=== PATIENT | male | born 2000 | race Hispanic/Latino ===

== ENCOUNTER 2018-12-24 00:53 | Emergency (ER) | payer SELFPAY ==
[2018-12-24 02:08] LABS: Absolute Lymphocytes (CBC) 1.7 K/uL (0.7-4.9); Basophils % 0.3 % (0-1.3); Hematocrit 48.3 % (39.6-49.0); Lymphocytes % 16.9 % (15.3-44.8); MPV 9.4 fL (7.6-11.3); RBC Red Blood Cell Count 5.63 M/uL (4.33-5.43)
[2018-12-24 02:25] LABS: ALT/SGPT 33 U/L (12-78); AST/SGOT 18 U/L (15-37); Albumin 4.8 g/dL (3.4-5.0); Alkaline Phosphatase 76 U/L (45-117); BUN Blood Urea Nitrogen 8 mg/dL (7-18); Bicarbonate 30 mmol/L (21-32); Bilirubin Direct 0.1 mg/dL (0-0.2); Bilirubin Total 0.3 mg/dL (0.2-1.0); Glucose Level 105 mg/dL (74-106); Lipase 60 U/L (73-393); Potassium 3.9 mmol/L (3.5-5.1); Protein, Total 8.5 g/dL (6.4-8.2); Sodium Level 139 mmol/L (136-145); Troponin (Emerg Dept Use Only) < 0.02 ng/mL (0.0-0.045)
--- NOTE | 2018-12-24 02:31 | EDPHYS ---
Physician Documentation [facility] Name: Aron Avila Jr Age: 18 yrs Sex: Male : 2000 Arrival Date: 12/24/2018 Time: 00:58 Bed 18 Private MD: ED Physician Lit Daniels HPI: 12/24 01:09 This 18 yrs old Male presents to ER via Unassigned with complaints of kb Abdominal Pain, "Rapid Heart Rate". 01:09 The patient presents with abdominal pain that is diffuse. Onset: The symptoms/episode kb began/occurred 5 month(s) ago. The symptoms do not radiate. Associated signs and symptoms: Pertinent positives: nausea. The symptoms are described as intermittent. Modifying factors: The symptoms are alleviated by nothing, the symptoms are aggravated by nothing. Severity of pain: At its worst the pain was moderate in the emergency department the pain is unchanged. The patient has not recently seen a physician. Pt reports abdominal pain for 4-5 months and chest pain for 1-2 years. Came tonight because he had some nausea after going up some stairs at work. "I've been having the nausea for a few weeks too. I just want to make sure I don't have anything going on.'. Historical: - Allergies: 01:05 No Known Allergies; cc3 - PSHx: 01:05 right cheek surgery; cc3 - Immunization history:: Adult Immunizations not up to date. - Social history:: Smoking status: Patient uses tobacco products, quit 5 mos ago. - Ebola Screening: : No symptoms or risks identified at this time. ROS: 01:09 Constitutional: Negative for fever, chills, and weight loss, ENT: Negative for injury, kb pain, and discharge, Neck: Negative for injury, pain, and swelling, Respiratory: Negative for shortness of breath, cough, wheezing, and pleuritic chest pain, Back: Negative for injury and pain, : Negative for injury, bleeding, discharge, and swelling, MS/Extremity: Negative for injury and deformity, Skin: Negative for injury, rash, and discoloration, Neuro: Negative for headache, weakness, numbness, tingling, and seizure. 01:09 Cardiovascular: Positive for chest pain, Negative for edema, orthopnea, palpitations, paroxysmal nocturnal dyspnea. 01:09 Abdomen/GI: Positive for abdominal pain, nausea, Negative for vomiting, diarrhea, constipation, abdominal cramps, abdominal distension, anorexia. Exam: 01:09 Constitutional: This is a well developed, well nourished patient who is awake, alert, kb and in no acute distress. Head/Face: Normocephalic, atraumatic. ENT: Nares patent. No nasal discharge, no septal abnormalities noted. Tympanic membranes are normal and external auditory canals are clear. Oropharynx with no redness, swelling, or masses, exudates, or evidence of obstruction, uvula midline. Mucous membranes moist. Neck: Trachea midline, no thyromegaly or masses palpated, and no cervical lymphadenopathy. Supple, full range of motion without nuchal rigidity, or vertebral point tenderness. No Meningismus. Chest/axilla: Normal chest wall appearance and motion. Nontender with no deformity. No lesions are appreciated. Cardiovascular: Regular rate and rhythm with a normal S1 and S2. No gallops, murmurs, or rubs. Normal PMI, no JVD. No pulse deficits. Respiratory: Lungs have equal breath sounds bilaterally, clear to auscultation and percussion. No rales, rhonchi or wheezes noted. No increased work of breathing, no retractions or nasal flaring. Back: No spinal tenderness. No costovertebral tenderness. Full range of motion. Skin: Warm, dry with normal turgor. Normal color with no rashes, no lesions, and no evidence of cellulitis. MS/ Extremity: Pulses equal, no cyanosis. Neurovascular intact. Full, normal range of motion. Neuro: Awake and alert, GCS 15, oriented to person, place, time, and situation. Cranial nerves II-XII grossly intact. Motor strength 5/5 in all extremities. Sensory grossly intact. Cerebellar exam normal. Normal gait. 01:09 Abdomen/GI: Inspection: abdomen appears normal, Bowel sounds: normal, in all quadrants, Palpation: soft, in all quadrants, mild abdominal tenderness, in the epigastric area, umbilical area, right upper quadrant and left upper quadrant. Vital Signs: 01:05 BP 132 / 87; Pulse 81; Resp 16 S; Temp 99(O); Pulse Ox 100% on R/A; Weight 80.74 kg cc3 (R); Height 5 ft. 5 in. (165.10 cm) (R); Pain 5/10; 02:14 BP 123 / 80; Pulse 76; Resp 19 S; Pulse Ox 100% on R/A; cc3 01:05 Body Mass Index 29.62 (80.74 kg, 165.10 cm) cc3 MDM: 01:03 Patient medically screened. kb 01:09 Data reviewed: vital signs, nurses notes. Data interpreted: Pulse oximetry: on room air kb is 100 %. Interpretation: normal. 02:28 Counseling: I had a detailed discussion with the patient and/or guardian regarding: the kb historical points, exam findings, and any diagnostic results supporting the discharge/admit diagnosis, lab results, the need for outpatient follow up, a family practitioner, to return to the emergency department if symptoms worsen or persist or if there are any questions or concerns that arise at home. 12/24 01:09 Order name: Basic Metabolic Panel; Complete Time: 02:27 kb 12/24 01:09 Order name: CBC with Diff; Complete Time: 02:19 kb 12/24 01:09 Order name: Hepatic Function; Complete Time: 02:27 kb 12/24 01:09 Order name: Lipase; Complete Time: 02:27 kb 12/24 01:09 Order name: Troponin (emerg Dept Use Only); Complete Time: 02:27 kb 12/24 01:09 Order name: EKG; Complete Time: 01:16 kb 12/24 01:09 Order name: IV Saline Lock; Complete Time: 01:47 kb 12/24 01:09 Order name: Labs collected and sent; Complete Time: 01:47 kb 12/24 01:09 Order name: EKG - Nurse/Tech; Complete Time: 01:40 kb Administered Medications: No medications were administered Disposition: 12/24/18 02:29 Discharged to Home. Impression: Generalized abdominal pain. - Condition is Stable. - Discharge Instructions: Abdominal Pain, Adult, [id number]. - Medication Reconciliation Form, Thank You Letter, Antibiotic Education, Prescription Opioid Use form. - Work release form (12/24/18 02:50). bb - Follow up: Emergency Department; When: As needed; Reason: Worsening of condition. Follow up: Private Physician; When: 2 - 3 days; Reason: Recheck today's complaints, Continuance of care, Re-evaluation by your physician. Signatures: Dispatcher [employer] EDMS Sofia Sawant, TRANSFERRER-C TRANSFERRER-Faye Tran, RN RN bb Veronica Gloria cc3 Corrections: (The following items were deleted from the chart) 02:43 02:29 12/24/2018 02:29 Discharged to Home. Impression: Generalized abdominal pain. cc3 Condition is Stable. Forms are Medication Reconciliation Form, Thank You Letter, Antibiotic Education, Prescription Opioid Use. Follow up: Emergency Department; When: As needed; Reason: Worsening of condition. Follow up: Private Physician; When: 2 - 3 days; Reason: Recheck today's complaints, Continuance of care, Re-evaluation by your physician. kb 02:47 02:43 12/24/2018 02:29 Discharged to Home. Impression: Generalized abdominal pain. bb Condition is Stable. Discharge Instructions: Abdominal Pain, Adult, [id number]. Forms are Medication Reconciliation Form, Thank You Letter, Antibiotic Education, Prescription Opioid Use. Follow up: Emergency Department; When: As needed; Reason: Worsening of condition. Follow up: Private Physician; When: 2 - 3 days; Reason: Recheck today's complaints, Continuance of care, Re-evaluation by your physician. cc3
--- NOTE | 2018-12-24 02:31 | ER ---
Nurse's Notes [facility] Name: Aron Avila Jr Age: 18 yrs Sex: Male : 2000 Arrival Date: 12/24/2018 Time: 00:58 Bed 18 Private MD: Diagnosis: Generalized abdominal pain Presentation: 12/24 01:05 Presenting complaint: Presenting complaint: Patient states: "I've been having chest cc3 pain since 2 years and abdominal pain since 2 months. I have history of cocaine abuse but the last time I used cocaine was 2 years ago". 01:05 Transition of care: patient was not received from another setting of care. Onset of cc3 symptoms was December 24, 2018. Risk Assessment: Do you want to hurt yourself or someone else? Patient reports no desire to harm self or others. Initial Sepsis Screen: Does the patient meet any 2 criteria? No. Patient's initial sepsis screen is negative. Does the patient have a suspected source of infection? No. Patient's initial sepsis screen is negative. Care prior to arrival: None. 01:05 Method Of Arrival: Ambulatory cc3 01:05 Acuity: ASHLEY 3 cc3 Triage Assessment: 01:05 General: Appears in no apparent distress. uncomfortable, Behavior is cooperative. Pain: cc3 Complains of pain in left upper quadrant and right upper quadrant and umbilical area and epigastric area, chest Pain currently is 5 out of 10 on a pain scale. Quality of pain is described as aching. GI: Abdomen is round non-distended, Reports lower abdominal pain, upper abdominal pain, since 2 months. Historical: - Allergies: 01:05 No Known Allergies; cc3 - PSHx: 01:05 right cheek surgery; cc3 - Immunization history:: Adult Immunizations not up to date. - Social history:: Smoking status: Patient uses tobacco products, quit 5 mos ago. - Ebola Screening: : No symptoms or risks identified at this time. Screenin:05 Abuse screen: Denies threats or abuse. Denies injuries from another. Nutritional cc3 screening: No deficits noted. Tuberculosis screening: No symptoms or risk factors identified. Fall Risk Ambulatory Aid- None/Bed Rest/Nurse Assist (0 pts). Gait- Normal/Bed Rest/Wheelchair (0 pts) Mental Status- Oriented to own ability (0 pts). Assessment: 01:05 General: Appears in no apparent distress. uncomfortable, Behavior is cooperative. Pain: cc3 Complains of pain in left upper quadrant and right upper quadrant and umbilical area and epigastric area, chest Pain currently is 5 out of 10 on a pain scale. Quality of pain is described as aching. Neuro: Level of Consciousness is awake, alert, obeys commands, Oriented to person, place, time, situation, Appropriate for age. Cardiovascular: Capillary refill < 3 seconds Patient's skin is warm and dry. Respiratory: Airway is patent Respiratory effort is even, unlabored, Respiratory pattern is regular, symmetrical. GI: Bowel sounds present X 4 quads. Abd is soft and non tender X 4 quads. : No signs and/or symptoms were reported regarding the genitourinary system. EENT: No signs and/or symptoms were reported regarding the EENT system. Derm: Skin is intact, is healthy with good turgor, Skin is pink, warm \\T\\ dry. normal. Musculoskeletal: Circulation, motion, and sensation intact. Range of motion: intact in all extremities. 02:14 Reassessment: Patient appears in no apparent distress at this time. Patient and/or cc3 family updated on plan of care and expected duration. Pain level reassessed. Patient is alert, oriented x 3, equal unlabored respirations, skin warm/dry/pink. 02:43 Reassessment: Patient appears in no apparent distress at this time. Patient and/or cc3 family updated on plan of care and expected duration. Pain level reassessed. Patient is alert, oriented x 3, equal unlabored respirations, skin warm/dry/pink. Dr. Daniels discharged the patient home, no prescription given. IV cannula removed and patient left ER vitally stable and ambulatory. No valuables left in the patient's room. Patient denies pain at this time. Patient states feeling better. Patient states symptoms have improved. Vital Signs: 01:05 BP 132 / 87; Pulse 81; Resp 16 S; Temp 99(O); Pulse Ox 100% on R/A; Weight 80.74 kg cc3 (R); Height 5 ft. 5 in. (165.10 cm) (R); Pain 5/10; 02:14 BP 123 / 80; Pulse 76; Resp 19 S; Pulse Ox 100% on R/A; cc3 01:05 Body Mass Index 29.62 (80.74 kg, 165.10 cm) cc3 ED Course: 00:58 Patient arrived in ED. do 01:03 Sofia Sawant FNP-C is PHCP. myrna 01:03 Lit Daniels MD is Attending Physician. myrna 01:05 Veronica Gloria is Primary Nurse. cc3 01:05 Arm band placed on right wrist. Patient notified of wait time. EKG completed in triage. cc3 Results shown to MD. 01:05 Patient has correct armband on for positive identification. Placed in gown. Bed in low cc3 position. Call light in reach. Side rails up X 1. test lead application testing on. Pulse ox on. NIBP on. 01:45 Inserted saline lock: 20 gauge in right antecubital area, using aseptic technique. cc3 Blood collected. 01:49 Triage completed. cc3 02:43 No provider procedures requiring assistance completed. IV discontinued, intact, cc3 bleeding controlled, No redness/swelling at site. Pressure dressing applied. 02:45 PHCP role handed off by Sofia Sawant FNP-C bb Administered Medications: No medications were administered Outcome: 02:29 Discharge ordered by MD. kb 02:43 Patient left the ED. cc3 02:43 Discharged to home ambulatory. cc3 02:43 Condition: stable 02:43 Discharge instructions given to patient, Instructed on discharge instructions, follow up and referral plans. Demonstrated understanding of instructions, follow-up care. 02:47 Patient left the ED. bb Signatures: Sofia Sawant FNP-C FNP-Ckb Ballard, Brenda, RN RN Kristina Solorio Charlene cc3 Corrections: (The following items were deleted from the chart) 01:49 01:05 Presenting complaint: cc3 cc3 01:51 01:05 Presenting complaint: Patient states: "I've been having chest pain since 2 years cc3 and abdominal pain since 2 months" Presenting complaint: Patient states: "I've been having chest pain since 2 years and abdominal pain since 2 months" cc3
--- NOTE | 2018-12-24 10:48 | EKG ---
Test Date: 2018-12-24 Test Time: 01:35:43 Sap Architect: SYLVIA MEASUREMENT RESULTS: Intervals: Rate: 87 CA: 162 QRSD: 94 QT: 342 QTc: 411 [place]: P: 70 CA: 162 QRS: 83 T: 45 INTERPRETIVE STATEMENTS: Normal sinus rhythm with sinus arrhythmia Normal ECG No previous ECG available for comparison Electronically Signed On 12-24-18 10:47:22 CDT by Edwin Caldera
== END 2018-12-24 02:47 | disposition home or self-care (01) ==
LOC: ER 00:53
DX: R10.9 Unspecified abdominal pain (principal); R11.0 Nausea; Z87.891 Personal history of nicotine dependence
CPT/HCPCS: 36415; 80048; 80076; 83690; 84484; 85025; 93005